=== PATIENT | female | born 1985 | race Caucasian/White ===

== ENCOUNTER 2018-03-26 01:17 | Emergency (ER) | payer OTHER ==
--- NOTE | 2018-03-26 02:41 | ER ---
Nurse's Notes [facility] Name: Gina Mon Age: 33 yrs Sex: Female : 1985 Arrival Date: 03/26/2018 Time: : Bed 5 Private MD: Diagnosis: Pain in right wrist Presentation: 03/26 01:42 Presenting complaint: Patient states: right wrist pain and numbness X5 days while ak1 helping her father clean out her grandfathers estate. pt with full ROM to right wrist at this time. Transition of care: patient was not received from another setting of care. Onset of symptoms is unknown. Risk Assessment: Do you want to hurt yourself or someone else? Patient reports no desire to harm self or others. Initial Sepsis Screen: Does the patient meet any 2 criteria? No. Patient's initial sepsis screen is negative. Does the patient have a suspected source of infection? No. Patient's initial sepsis screen is negative. Care prior to arrival: None. 01:42 Method Of Arrival: Ambulatory ak1 01:42 Acuity: KATRIN 4 ak1 Triage Assessment: 01:44 General: Appears in no apparent distress. Behavior is calm, cooperative. Pain: ak1 Complains of pain in dorsum of right hand, dorsal aspect of right wrist, heel of right hand, palm of right hand and palmar aspect of right wrist. EENT: No signs and/or symptoms were reported regarding the EENT system. Neuro: No deficits noted. Cardiovascular: No deficits noted. Respiratory: No deficits noted. GI: No signs and/or symptoms were reported involving the gastrointestinal system. : No signs and/or symptoms were reported regarding the genitourinary system. Derm: No signs and/or symptoms reported regarding the dermatologic system. Musculoskeletal: Range of motion: intact in all extremities. Injury Description: no known injury. 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 - Social history:: Smoking status: Patient uses tobacco products, smokes one-half pack cigarettes per day. - Ebola Screening: : No symptoms or risks identified at this time. Screenin:46 Abuse screen: Denies threats or abuse. Denies injuries from another. Nutritional ak1 screening: No deficits noted. Tuberculosis screening: No symptoms or risk factors identified. Fall Risk None identified. Assessment: 01:47 Reassessment: see triage assessment. ak1 Vital Signs: 01:44 BP 119 / 72; Pulse 72; Resp 18; Temp 98.5(O); Pulse Ox 98% on R/A; Weight 81.65 kg (R); ak1 Height 5 ft. 6 in. (167.64 cm) (R); Pain 5/10; 01:44 Body Mass Index 29.05 (81.65 kg, 167.64 cm) ak1 ED Course: 01:22 Patient arrived in ED. es 01:23 Omari Cohen PA is PHCP. cp 01:23 Shashank Trevizo MD is Attending Physician. cp 01:41 Mell Wise, RN is Primary Nurse. ak1 01:42 Triage completed. ak1 01:44 Arm band placed on Patient placed in an exam room, on a stretcher, on pulse oximetry, ak1 Patient notified of wait time. 01:47 Patient has correct armband on for positive identification. Bed in low position. Call ak1 light in reach. Side rails up X 1. Pulse ox on. NIBP on. 01:47 No provider procedures requiring assistance completed. ak1 02:06 X-ray completed. Portable x-ray completed in exam room. Patient tolerated procedure kw well. 02:13 XRAY Wrist RIGHT 3 view In Process Unspecified. EDMS 02:40 John Rios MD is Referral Physician. cp 02:52 Patient did not have IV access during this emergency room visit. ak1 Administered Medications: 02:51 Not Given (Patient Refused): Ibuprofen 800 mg PO once ak1 Outcome: 02:40 Discharge ordered by . cp 02:51 Discharged to home ambulatory. ak1 02:51 Condition: good 02:51 Discharge instructions given to patient, Instructed on discharge instructions, follow up and referral plans. no drinking with medication, no driving heavy equipment, medication usage, Demonstrated understanding of instructions, follow-up care, medications, Prescriptions given X 1. 02:52 Patient left the ED. ak1 Signatures: Dispatcher [employer] Lodya Borges Kimberlee kw Krenek, Amber, RN RN ak1 Omari Cohen PA PA cp
--- NOTE | 2018-03-26 02:42 | EDPHYS ---
Physician Documentation [facility] Name: Gina Mon Age: 33 yrs Sex: Female : 1985 Arrival Date: 03/26/2018 Time: : Bed 5 Private MD: ED Physician Shashank Trevizo HPI: 03/26 01:45 This 33 yrs old Female presents to ER via Ambulatory with complaints of Wrist cp Injury. 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 - Social history:: Smoking status: Patient uses tobacco products, smokes one-half pack cigarettes per day. - Ebola Screening: : No symptoms or risks identified at this time. ROS: 02:00 Constitutional: Negative for body aches, chills, fever, poor PO intake. cp 02:00 Eyes: Negative for injury, pain, redness, and discharge. cp 02:00 ENT: Negative for drainage from ear(s), ear pain, sore throat, difficulty swallowing, difficulty handling secretions. 02:00 Cardiovascular: Negative for chest pain, edema, palpitations. 02:00 Respiratory: Negative for cough, shortness of breath, wheezing. 02:00 MS/extremity: Positive for pain, tenderness, of the right wrist, Negative for decreased range of motion, paresthesias, swelling. 02:00 Skin: Negative for cellulitis, rash. 02:00 Neuro: Positive for weakness, of the right wrist, Negative for headache, numbness. 02:00 All other systems are negative. Exam: 02:05 Constitutional: The patient appears in no acute distress, alert, awake, non-toxic, well cp developed, well nourished. 02:05 Head/Face: Normocephalic, atraumatic. cp 02:05 Eyes: Periorbital structures: appear normal, Conjunctiva: normal, no exudate, no injection, Sclera: no appreciated abnormality, Lids and lashes: appear normal, bilaterally. 02:05 ENT: External ear(s): are unremarkable, Nose: is normal, Mouth: Lips: moist, Oral mucosa: moist. 02:05 Chest/axilla: Inspection: normal. 02:05 Cardiovascular: Rate: normal, Pulses: Pulses are 2+ in right radial artery and left radial artery. 02:05 Respiratory: the patient does not display signs of respiratory distress, Respirations: normal. 02:05 Musculoskeletal/extremity: Extremities: grossly normal except: noted in the volar surface right wrist: pain, tenderness, There is no evidence of decreased ROM, swelling, ROM: full passive range of motion, in the right wrist, Sensation intact. 02:05 Skin: cellulitis, is not appreciated, no rash present. Vital Signs: 01:44 BP 119 / 72; Pulse 72; Resp 18; Temp 98.5(O); Pulse Ox 98% on R/A; Weight 81.65 kg (R); ak1 Height 5 ft. 6 in. (167.64 cm) (R); Pain 5/10; 01:44 Body Mass Index 29.05 (81.65 kg, 167.64 cm) ak1 Procedures: 02:45 Splinting: Splint applied to right wrist using wrist splint, applied by nurse. Examined cp by me, post splint application: neurovascular intact, Patient tolerated well. MDM: 01:24 Patient medically screened. cp 02:10 Differential diagnosis: dislocation, closed fracture, tendonitis. cp 02:40 Data reviewed: vital signs, nurses notes, radiologic studies, plain films. cp 02:40 Test interpretation: by ED physician or midlevel provider: plain radiologic studies. cp Counseling: I had a detailed discussion with the patient and/or guardian regarding: the historical points, exam findings, and any diagnostic results supporting the discharge/admit diagnosis, radiology results, to return to the emergency department if symptoms worsen or persist or if there are any questions or concerns that arise at home. 03/26 01:56 Order name: XRAY Wrist RIGHT 3 view cp 03/26 02:42 Order name: Wrist Splint; Complete Time: 02:45 cp Administered Medications: 02:51 Not Given (Patient Refused): Ibuprofen 800 mg PO once ak1 Disposition: 06:03 Co-signature as Attending Physician, Shashank Trevizo MD. rn Disposition: 03/26/18 02:40 Discharged to Home. Impression: Pain in right wrist. - Condition is Stable. - Discharge Instructions: Carpal Tunnel Syndrome, Wrist Pain, Wrist Splint. - Prescriptions for Anaprox DS 550 mg Oral Tablet - take 1 tablet by ORAL route every 12 hours As needed; 20 tablet. - Medication Reconciliation Form, Thank You Letter, Antibiotic Education, Prescription Opioid Use form. - Follow up: John Rios MD; When: 1 week; Reason: pain continues. - Problem is new. - Symptoms have improved. Signatures: Dispatcher [employer] EDMS Shashank Trevizo MD MD rn Krenek, Amber, RN RN ak1 Omari Cohen PA PA cp Corrections: (The following items were deleted from the chart) 02:42 02:00 This 33 yrs old Female presents to ER via Ambulatory with complaints of cp Wrist Injury. cp 02:52 02:40 03/26/2018 02:40 Discharged to Home. Impression: Pain in right wrist. Condition ak1 is Stable. Forms are Medication Reconciliation Form, Thank You Letter, Antibiotic Education, Prescription Opioid Use. Follow up: John Rios; When: 1 week; Reason: pain continues. Problem is new. Symptoms have improved. cp
--- NOTE | 2018-03-26 08:37 | RAD REPORT ---
EXAM DESCRIPTION: RAD - Wrist Right 3 View - 03/26/2018 2:13 am CLINICAL HISTORY: Hand and wrist pain following trauma COMPARISON: None. FINDINGS: No fracture is identified. There is no dislocation or periosteal reaction noted. Epiphyses and growth plates are Normal in appearance. No foreign body or other soft tissue abnormality. IMPRESSION: Negative right wrist examination.
== END 2018-03-26 02:52 | disposition home or self-care (01) ==
LOC: ER 01:17
DX: M25.531 Pain in right wrist (principal); F32.9 Major depressive disorder, single episode, unspecified; F17.210 Nicotine dependence, cigarettes, uncomplicated; Z88.8 Allergy status to other drugs, medicaments and biological substances
CPT/HCPCS: 99283

== ENCOUNTER 2018-12-17 22:33 | Emergency (ER) | payer OTHER, SELFPAY ==
--- NOTE | 2018-12-17 23:08 | EDPHYS ---
Physician Documentation [facility] Name: Gina Mon Age: 33 yrs Sex: Female : 1985 Arrival Date: 12/17/2018 Time: 22:37 Bed 7 Private MD: ED Physician Cali Donohue HPI: 12/17 23:06 This 33 yrs old Female presents to ER via Ambulatory with complaints of Rash. pm1 23:06 The patient's rash thought to be caused by scabies. The rash is located on the body pm1 diffusely. The rash can be described as diffuse. Onset: The symptoms/episode began/occurred 1 month(s) ago. Associated signs and symptoms: Pertinent positives: itching, Pertinent negatives: fever, swelling of lips, swelling of throat, swelling of tongue. Severity of symptoms: in the emergency department the symptoms are worse. Treatment given at home: None. Patient has been prescribed Elimite twice. Symptoms improved and then returned. Patient's roommate recently got rid of his dog that had mange. The patient has not experienced similar symptoms in the past. The patient has been recently seen by a physician: with similar presenting complaints, and apparently given a diagnosis of scabies. 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 - Social history:: Smoking status: Patient uses tobacco products, smokes one pack cigarettes per day. - Ebola Screening: : No symptoms or risks identified at this time. ROS: 23:06 Constitutional: Negative for fever, chills, and weight loss, Eyes: Negative for injury, pm1 pain, redness, and discharge, ENT: Negative for injury, pain, and discharge, Neck: Negative for injury, pain, and swelling, Cardiovascular: Negative for chest pain, palpitations, and edema, Respiratory: Negative for shortness of breath, cough, wheezing, and pleuritic chest pain, Back: Negative for injury and pain, MS/Extremity: Negative for injury and deformity. 23:06 Skin: Positive for rash, diffusely. Exam: 23:06 Constitutional: This is a well developed, well nourished patient who is awake, alert, pm1 and in no acute distress. Head/Face: Normocephalic, atraumatic. 23:06 Chest/axilla: Normal chest wall appearance and motion. Nontender with no deformity. No lesions are appreciated. Cardiovascular: Regular rate and rhythm with a normal S1 and S2. No gallops, murmurs, or rubs. Normal PMI, no JVD. No pulse deficits. Respiratory: Lungs have equal breath sounds bilaterally, clear to auscultation and percussion. No rales, rhonchi or wheezes noted. No increased work of breathing, no retractions or nasal flaring. Back: No spinal tenderness. No costovertebral tenderness. Full range of motion. 23:06 Skin: Appearance: normal except for affected area, consistent with scabies. 23:06 Neuro: Orientation: is normal, Motor: is normal, moves all fours. Vital Signs: 23:03 BP 124 / 83; Pulse 112; Resp 18; Temp 98.4(O); Pulse Ox 97% on R/A; Weight 77.11 kg; tl2 Height 5 ft. 6 in. (167.64 cm); Pain 8/10; 23:03 Body Mass Index 27.44 (77.11 kg, 167.64 cm) tl2 MDM: 22:41 Patient medically screened. pm1 23:06 Data reviewed: vital signs. Data interpreted: Pulse oximetry: on room air is 97 %. pm1 Interpretation: normal. Counseling: I had a detailed discussion with the patient and/or guardian regarding: the historical points, exam findings, and any diagnostic results supporting the discharge/admit diagnosis, the need for outpatient follow up, to return to the emergency department if symptoms worsen or persist or if there are any questions or concerns that arise at home. Administered Medications: 23:20 Drug: Benadryl 25 mg Route: PO; tl2 23:21 Follow up: Response: No adverse reaction; Medication administered at discharge. tl2 23:20 Drug: predniSONE 60 mg Route: PO; tl2 23:21 Follow up: Response: No adverse reaction; Medication administered at discharge. tl2 Disposition: 12/18 22:07 Co-signature as Attending Physician, Cali Donohue MD Available for consultation at ps1 all times. . Disposition: 12/17/18 23:08 Discharged to Home. Impression: Scabies. - Condition is Stable. - Discharge Instructions: Scabies, Adult. - Prescriptions for Benadryl 25 mg Oral Capsule - take 1 capsule by ORAL route every 6 hours As needed; 30 tablet. Elimite 5 % Topical Cream - apply 1 application by TOPICAL route one time Wash after 12 hours.; 60 gram. - Medication Reconciliation Form, Thank You Letter, Antibiotic Education, Prescription Opioid Use form. - Follow up: Emergency Department; When: As needed; Reason: Worsening of condition. Follow up: Private Physician; When: 2 - 3 days; Reason: Recheck today's complaints, Continuance of care, Re-evaluation by your physician. - Problem is new. - Symptoms have improved. Signatures: Adam Jackson, RADIO NEWS ANCHOR RADIO NEWS ANCHOR pm1 Chata Pina RN RN tl2 Cali Donohue MD MD ps1 Corrections: (The following items were deleted from the chart) 12/17 23:34 23:08 12/17/2018 23:08 Discharged to Home. Impression: Scabies. Condition is Stable. tl2 Forms are Medication Reconciliation Form, Thank You Letter, Antibiotic Education, Prescription Opioid Use. Follow up: Emergency Department; When: As needed; Reason: Worsening of condition. Follow up: Private Physician; When: 2 - 3 days; Reason: Recheck today's complaints, Continuance of care, Re-evaluation by your physician. Problem is new. Symptoms have improved. pm1
--- NOTE | 2018-12-17 23:08 | ER ---
Nurse's Notes [facility] Name: Gina Mon Age: 33 yrs Sex: Female : 1985 Arrival Date: 12/17/2018 Time: 22:37 Bed 7 Private MD: Diagnosis: Scabies Presentation: 12/17 23:01 Presenting complaint: Patient states: "I think I have scabies, I saw a doctor for it tl2 before and he gave me a cream that made it go away but it keeps coming back. I think the house I live in is infested" Reports itching and scabs present all over body. Transition of care: patient was not received from another setting of care. Onset of symptoms was October 2018. Risk Assessment: Do you want to hurt yourself or someone else? Patient reports no desire to harm self or others. Initial Sepsis Screen: Does the patient meet any 2 criteria? HR > 90 bpm. Does the patient have a suspected source of infection? No. Patient's initial sepsis screen is negative. Care prior to arrival: None. 23:01 Method Of Arrival: Ambulatory tl2 23:01 Acuity: KATRIN 4 tl2 Triage Assessment: 23:03 General: Appears in no apparent distress. uncomfortable, Behavior is calm, cooperative, tl2 appropriate for age. Pain: Complains of pain in arms, legs, face. Neuro: Level of Consciousness is awake, alert, obeys commands, Oriented to person, place, time, situation. Cardiovascular: Denies chest pain. Respiratory: Airway is patent Respiratory effort is even, unlabored, Respiratory pattern is regular, symmetrical. GI: Reports diarrhea. : No signs and/or symptoms were reported regarding the genitourinary system. Derm: Skin is pink, warm \\T\\ dry. Rash noted that is itchy, scabs present on skin. 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 - Social history:: Smoking status: Patient uses tobacco products, smokes one pack cigarettes per day. - Ebola Screening: : No symptoms or risks identified at this time. Screenin:05 Abuse screen: Denies threats or abuse. Nutritional screening: No deficits noted. tl2 Tuberculosis screening: No symptoms or risk factors identified. Fall Risk None identified. Assessment: 23:03 General: see triage assessment. tl2 23:20 Reassessment: Patient appears in no apparent distress at this time. Patient and/or tl2 family updated on plan of care and expected duration. Pain level reassessed. Patient is alert, oriented x 3, equal unlabored respirations, skin warm/dry/pink. pt verbalized understanding of discharge instructions, need for follow up and prescription usage. Vital Signs: 23:03 BP 124 / 83; Pulse 112; Resp 18; Temp 98.4(O); Pulse Ox 97% on R/A; Weight 77.11 kg; tl2 Height 5 ft. 6 in. (167.64 cm); Pain 8/10; 23:03 Body Mass Index 27.44 (77.11 kg, 167.64 cm) tl2 ED Course: 22:37 Patient arrived in ED. es 22:41 Adam Jackson NP is PHCP. pm1 22:41 Cali Donohue MD is Attending Physician. pm1 23:02 Triage completed. tl2 23:03 Arm band placed on right wrist. tl2 23:05 Patient has correct armband on for positive identification. Bed in low position. Call tl2 light in reach. Side rails up X 1. 23:20 Chata Pina, JOSÉ is Primary Nurse. tl2 23:20 No provider procedures requiring assistance completed. Patient did not have IV access tl2 during this emergency room visit. Administered Medications: 23:20 Drug: Benadryl 25 mg Route: PO; tl2 23:21 Follow up: Response: No adverse reaction; Medication administered at discharge. tl2 23:20 Drug: predniSONE 60 mg Route: PO; tl2 23:21 Follow up: Response: No adverse reaction; Medication administered at discharge. tl2 Outcome: 23:08 Discharge ordered by . pm1 23:20 Discharged to home ambulatory. tl2 23:20 Condition: stable 23:20 Discharge instructions given to patient, Instructed on discharge instructions, follow up and referral plans. medication usage, Demonstrated understanding of instructions, follow-up care, medications, Prescriptions given X 2. 23:34 Patient left the ED. tl2 Signatures: Loyda Squires Patrick, STITCHING MACHINE OPERATOR STITCHING MACHINE OPERATOR pm1 Chata Pina, RN RN tl2
[2018-12-17] MEDS ORDERED: predniSONE 20 MG TAB ONE (23:27)
[2018-12-17] MEDS ORDERED: DIPHENHYDRAMINE 25 MG TAB/CAP ONE (23:27)
== END 2018-12-17 23:34 | disposition home or self-care (01) ==
LOC: ER 22:33
DX: B86 Scabies (principal); F32.9 Major depressive disorder, single episode, unspecified; F17.210 Nicotine dependence, cigarettes, uncomplicated
CPT/HCPCS: 99283; J7512

== ENCOUNTER 2019-02-21 20:13 | Emergency (ER) | payer SELFPAY ==
--- NOTE | 2019-02-21 20:27 | EDPHYS ---
Physician Documentation [facility] Name: Gina Mon Age: 34 yrs Sex: Female : 1985 Arrival Date: 02/21/2019 Time: 20:14 Bed Waiting Private MD: MAEVE Physician Omari Turner HPI: 02/21 20:35 This 34 yrs old Female presents to ER via Ambulatory with complaints of Skin kb Problem. 20:35 The patient's rash thought to be caused by possible parasites. The rash is located on kb the body diffusely. The rash can be described as sores. Onset: The symptoms/episode began/occurred a few weeks ago. Associated signs and symptoms: Pertinent positives: None. Severity of symptoms: At their worst the symptoms were mild moderate in the emergency department the symptoms are unchanged. The patient has not experienced similar symptoms in the past. The patient has been recently seen by a physician:. Pt reports she has had sores for a few weeks. States she has done the scabies treatment three times without relief. . 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 - Social history:: Smoking status: Patient uses tobacco products, smokes one pack cigarettes per day. Patient/guardian denies using alcohol, street drugs. - Ebola Screening: : Patient denies travel to an Ebola-affected area in the 21 days before illness onset. ROS: 20:32 Constitutional: Negative for fever, chills, and weight loss, Cardiovascular: Negative kb for chest pain, palpitations, and edema, Respiratory: Negative for shortness of breath, cough, wheezing, and pleuritic chest pain, Abdomen/GI: Negative for abdominal pain, nausea, vomiting, diarrhea, and constipation, MS/Extremity: Negative for injury and deformity, Neuro: Negative for headache, weakness, numbness, tingling, and seizure. 20:32 Skin: Positive for skin sores. Exam: 20:33 Constitutional: This is a well developed, well nourished patient who is awake, alert, kb and in no acute distress. Head/Face: Normocephalic, atraumatic. Chest/axilla: Normal chest wall appearance and motion. Nontender with no deformity. No lesions are appreciated. Cardiovascular: Regular rate and rhythm with a normal S1 and S2. No gallops, murmurs, or rubs. Normal PMI, no JVD. No pulse deficits. Respiratory: Lungs have equal breath sounds bilaterally, clear to auscultation and percussion. No rales, rhonchi or wheezes noted. No increased work of breathing, no retractions or nasal flaring. Abdomen/GI: Soft, non-tender, with normal bowel sounds. No distension or tympany. No guarding or rebound. No evidence of tenderness throughout. MS/ Extremity: Pulses equal, no cyanosis. Neurovascular intact. Full, normal range of motion. Neuro: Awake and alert, GCS 15, oriented to person, place, time, and situation. Cranial nerves II-XII grossly intact. Motor strength 5/5 in all extremities. Sensory grossly intact. Cerebellar exam normal. Normal gait. 20:33 Skin: Vital Signs: 20:18 BP 126 / 88; Pulse 115; Resp 20; Temp 97.2; Pulse Ox 98% on R/A; Weight 68.04 kg (R); aj1 Height 5 ft. 6 in. (167.64 cm) (R); Pain 0/10; 20:18 Body Mass Index 24.21 (68.04 kg, 167.64 cm) aj1 MDM: 20:20 Patient medically screened. [place] 20:31 Data reviewed: vital signs, nurses notes. Data interpreted: Pulse oximetry: on room air kb is 98 %. Interpretation: normal. Counseling: I had a detailed discussion with the patient and/or guardian regarding: the historical points, exam findings, and any diagnostic results supporting the discharge/admit diagnosis, the need for outpatient follow up, a family practitioner, to return to the emergency department if symptoms worsen or persist or if there are any questions or concerns that arise at home. Administered Medications: No medications were administered Disposition: 02/22 08:11 Co-signature as Attending Physician, Omari Turner MD I agree with the assessment and stuart plan of care. Disposition: 02/21/19 20:26 Discharged to Home. Impression: Local infection of the skin and subcutaneous tissue, unspecified. - Condition is Stable. - Discharge Instructions: Insect Bite, [id number], Wound Infection, [id number]-nn-Cwwm. - Prescriptions for Doxycycline Hyclate 100 mg Oral Tablet - take 1 tablet by ORAL route every 12 hours; 20 tablet. - Medication Reconciliation Form, Thank You Letter, Antibiotic Education, Prescription Opioid Use form. - Follow up: Emergency Department; When: As needed; Reason: Worsening of condition. Follow up: Private Physician; When: 2 - 3 days; Reason: Recheck today's complaints, Continuance of care, Re-evaluation by your physician. Signatures: Laurel Darling FNP-C FNP-Ileana Joyner RN RN aj1 Omari Turner MD MD cha Corrections: (The following items were deleted from the chart) 02/21 20:41 20:26 02/21/2019 20:26 Discharged to Home. Impression: Local infection of the skin and aj1 subcutaneous tissue, unspecified. Condition is Stable. Forms are Medication Reconciliation Form, Thank You Letter, Antibiotic Education, Prescription Opioid Use. Follow up: Emergency Department; When: As needed; Reason: Worsening of condition. Follow up: Private Physician; When: 2 - 3 days; Reason: Recheck today's complaints, Continuance of care, Re-evaluation by your physician. kb
--- NOTE | 2019-02-21 20:27 | ER ---
Nurse's Notes [facility] Name: Gina Mon Age: 34 yrs Sex: Female : 1985 Arrival Date: 02/21/2019 Time: 20:14 Bed Waiting Private MD: Diagnosis: Local infection of the skin and subcutaneous tissue, unspecified Presentation: 02/21 20:14 Presenting complaint: Patient states: She has been diagnosed with scabies multiple aj1 times, she does the treatment and it goes away but then it comes right back. Transition of care: patient was not received from another setting of care. Onset of symptoms was February 21, 2019. Risk Assessment: Do you want to hurt yourself or someone else? Patient reports no desire to harm self or others. Initial Sepsis Screen: Does the patient meet any 2 criteria? HR > 90 bpm. No. Patient's initial sepsis screen is negative. Does the patient have a suspected source of infection? No. Patient's initial sepsis screen is negative. Care prior to arrival: None. 20:14 Method Of Arrival: Ambulatory aj1 20:14 Acuity: KATRIN 5 aj1 Triage Assessment: 20:18 General: Appears in no apparent distress. comfortable, Behavior is calm, cooperative, aj1 appropriate for age. Pain: Denies pain. Neuro: Level of Consciousness is awake, alert, obeys commands, Oriented to person, place, time, situation. Cardiovascular: Patient's skin is warm and dry. Respiratory: Airway is patent Respiratory effort is even, unlabored, Respiratory pattern is regular, symmetrical. 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 - Social history:: Smoking status: Patient uses tobacco products, smokes one pack cigarettes per day. Patient/guardian denies using alcohol, street drugs. - Ebola Screening: : Patient denies travel to an Ebola-affected area in the 21 days before illness onset. Screenin:39 Abuse screen: Denies threats or abuse. Denies injuries from another. Nutritional aj1 screening: No deficits noted. Tuberculosis screening: No symptoms or risk factors identified. Fall Risk None identified. Assessment: 20:39 General: Appears in no apparent distress. comfortable, Behavior is calm, cooperative, aj1 appropriate for age. Pain: Denies pain. Neuro: Level of Consciousness is awake, alert, obeys commands. Cardiovascular: Patient's skin is warm and dry. Respiratory: Airway is patent Respiratory effort is even, unlabored, Respiratory pattern is regular, symmetrical. GI: No signs and/or symptoms were reported involving the gastrointestinal system. : No signs and/or symptoms were reported regarding the genitourinary system. EENT: No signs and/or symptoms were reported regarding the EENT system. Derm: Rash noted that is red, raised, on face, back, chest, abdomen, right arm, left arm and right leg. Musculoskeletal: No signs and/or symptoms reported regarding the musculoskeletal system. Circulation, motion, and sensation intact. Vital Signs: 20:18 BP 126 / 88; Pulse 115; Resp 20; Temp 97.2; Pulse Ox 98% on R/A; Weight 68.04 kg (R); aj1 Height 5 ft. 6 in. (167.64 cm) (R); Pain 0/10; 20:18 Body Mass Index 24.21 (68.04 kg, 167.64 cm) aj1 ED Course: 20:14 Patient arrived in ED. mr 20:17 Triage completed. aj1 20:18 Arm band placed on. aj1 20:20 Omari Turner MD is Attending Physician. stuart 20:21 Sliva Angulo, RN is Primary Nurse. [facility] 20:22 aLurel Darling FNP-C is [facility]. kb 20:22 Omari Turner MD is Attending Physician. kb 20:39 Patient has correct armband on for positive identification. aj1 20:39 No provider procedures requiring assistance completed. Patient did not have IV access aj1 during this emergency room visit. Administered Medications: No medications were administered Outcome: 20:26 Discharge ordered by . kb 20:40 Discharged to home ambulatory. aj1 20:40 Condition: good 20:40 Discharge instructions given to patient, Instructed on discharge instructions, follow up and referral plans. medication usage, Demonstrated understanding of instructions, follow-up care, medications, Prescriptions given X 1. 20:41 Patient left the ED. aj1 Signatures: Laurel Darling FNP-C HELP AID-Ileana Joyner, JOSÉ RN aj1 Omari Turner MD MD cha Rivera, Mary mr Silva Angulo, JOSÉ RN ca1
[2019-02-21 21:29] VITALS: BP 126/88; TEMP 97.2; O2SAT 98
== END 2019-02-21 20:41 | disposition home or self-care (01) ==
LOC: ER 20:13
DX: L08.9 Local infection of the skin and subcutaneous tissue, unspecified (principal); F17.210 Nicotine dependence, cigarettes, uncomplicated; Z88.6 Allergy status to analgesic agent; Z91.030 Bee allergy status
CPT/HCPCS: 99282

== ENCOUNTER 2019-04-18 17:45 | Emergency (ER) | payer SELFPAY ==
--- NOTE | 2019-04-18 18:11 | EDPHYS ---
Physician Documentation [facility] Name: Gina Mon Age: 34 yrs Sex: Female : 1985 Arrival Date: 04/18/2019 Time: 17:48 Bed 14 Private MD: ED Physician Norberto Calderon HPI: 04/18 17:59 This 34 yrs old Female presents to ER via Ambulatory with complaints of Rash. jmm 17:59 Onset: The symptoms/episode began/occurred gradually, 3 day(s) ago. Associated signs jmm and symptoms: Pertinent positives: fever, Pertinent negatives: burning sensation, difficulty breathing, swelling of lips, swelling of throat, swelling of tongue, vomiting, wheezing. This is a 34 year old female with a history of depression that presents to the ED with complaints of rash which has been episodic over the past 6 months. Patient was initially diagnosed with scabies and prescribed cream while helped. Patient states symptoms have returned.. Historical: - Allergies: 18:12 BEE STINGS; ss 18:12 GABAPENTIN; ss - PMHx: 18:12 Depression; ss - Immunization history:: Adult Immunizations up to date. - Social history:: Smoking status: unknown. - Ebola Screening: : Patient denies exposure to infectious person Patient denies travel to an Ebola-affected area in the 21 days before illness onset. ROS: 17:59 Constitutional: Negative for fever, chills, and weight loss, Cardiovascular: Negative jmm for chest pain, palpitations, and edema, Respiratory: Negative for shortness of breath, cough, wheezing, and pleuritic chest pain. 17:59 Skin: Positive for rash. 17:59 All other systems are negative. Exam: 17:59 Constitutional: This is a well developed, well nourished patient who is awake, alert, jmm and in no acute distress. Head/Face: atraumatic. Eyes: EOMI, no conjunctival erythema appreciated ENT: Moist Mucus Membranes Neck: Trachea midline, Supple Chest/axilla: Normal chest wall appearance and motion. Cardiovascular: Regular rate and rhythm. No edema appreciated Respiratory: Normal respirations, no respiratory distress appreciated Abdomen/GI: Non distended, soft Back: Normal ROM 17:59 MS/ Extremity: Moves all extremities, no obvious deformities appreciated, no edema noted to the lower extremities 17:59 Skin: scaling rash noted ot the hands bilaterally, erythematous rash noted to the back of the neck and chest. Vital Signs: 18:12 BP 125 / 86; Pulse 70; Resp 16; Temp 98.6(O); Pulse Ox 97% on R/A; Weight 72.57 kg; ss Height 5 ft. 6 in. (167.64 cm); 18:12 Body Mass Index 25.82 (72.57 kg, 167.64 cm) ss MDM: 17:59 Patient medically screened. [facility] 18:09 Data reviewed: vital signs, nurses notes. Counseling: I had a detailed discussion with jono the patient and/or guardian regarding: the historical points, exam findings, and any diagnostic results supporting the discharge/admit diagnosis, the need for outpatient follow up, to return to the emergency department if symptoms worsen or persist or if there are any questions or concerns that arise at home. Administered Medications: No medications were administered Disposition: 04/19 07:31 Co-signature as Attending Physician, Norberto Calderon MD I agree with the assessment and kdr plan of care. Disposition: 04/18/19 18:10 Discharged to Home. Impression: Rash and other nonspecific skin eruption. - Condition is Stable. - Discharge Instructions: Rash. - Prescriptions for Elimite 5 % Topical Cream - apply 1 application by TOPICAL route one time Wash after 12 hours.; 60 gram. Hydroxyzine HCl 25 mg Oral Tablet - take 1 tablet by ORAL route every 6 hours As needed; 30 tablet. Prednisone 20 mg Oral Tablet - take 3 tablet by ORAL route once daily for 5 days; 15 tablet. Doxycycline Hyclate 100 mg Oral Tablet - take 1 tablet by ORAL route every 12 hours; 20 tablet. - Medication Reconciliation Form, Thank You Letter, Antibiotic Education, Prescription Opioid Use form. - Follow up: Private Physician; When: 2 - 3 days; Reason: Recheck today's complaints, Continuance of care, Re-evaluation by your physician. Signatures: Norberto Calderon MD MD kdr Mickail, Joel, PA PA jmm Smirch, Shelby, RN RN ss Corrections: (The following items were deleted from the chart) 04/18 18:17 18:10 04/18/2019 18:10 Discharged to Home. Impression: Rash and other nonspecific skin ss eruption. Condition is Stable. Forms are Medication Reconciliation Form, Thank You Letter, Antibiotic Education, Prescription Opioid Use. Follow up: Private Physician; When: 2 - 3 days; Reason: Recheck today's complaints, Continuance of care, Re-evaluation by your physician. jono
--- NOTE | 2019-04-18 18:18 | ER ---
Nurse's Notes [facility] Name: Gina Mon Age: 34 yrs Sex: Female : 1985 Arrival Date: 04/18/2019 Time: 17:48 Bed 14 Private MD: Diagnosis: Rash and other nonspecific skin eruption Presentation: 04/18 17:56 Presenting complaint: Patient states: rash all over body x 6 months. Patient has been ss seen in ER 5 times, but states that her rash keeps coming back. Spouse also reports he has the similar rash to his R upper thigh. 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 Transition of care: patient was not received from another setting of care. Onset of symptoms was October 2018. Risk Assessment: Do you want to hurt yourself or someone else? Patient reports no desire to harm self or others. Initial Sepsis Screen: Does the patient meet any 2 criteria? No. Patient's initial sepsis screen is negative. Does the patient have a suspected source of infection? No. Patient's initial sepsis screen is negative. Care prior to arrival: None. 17:56 Acuity: KATRIN 5 ss 17:56 Method Of Arrival: Ambulatory ss Historical: - Allergies: 18:12 BEE STINGS; ss 18:12 GABAPENTIN; ss - PMHx: 18:12 Depression; ss - Immunization history:: Adult Immunizations up to date. - Social history:: Smoking status: unknown. - Ebola Screening: : Patient denies exposure to infectious person Patient denies travel to an Ebola-affected area in the 21 days before illness onset. Screenin:14 Abuse screen: Denies threats or abuse. Denies injuries from another. Nutritional ss screening: No deficits noted. Tuberculosis screening: Never had TB. Fall Risk None identified. Assessment: 18:14 General: Appears uncomfortable, Behavior is calm, cooperative. Pain: Complains of pain ss in hand tenderness where rash is present. Neuro: Level of Consciousness is awake, alert, obeys commands. Cardiovascular: Capillary refill < 3 seconds is brisk in bilateral fingers. Respiratory: Airway is patent Respiratory effort is even, unlabored, Respiratory pattern is regular, symmetrical. GI: No signs and/or symptoms were reported involving the gastrointestinal system. : No signs and/or symptoms were reported regarding the genitourinary system. EENT: Nares are clear Oral mucosa is moist. Throat is clear. Derm: Rash noted that is itchy, red, on face, right hand, left hand, right arm, left arm, right leg and left leg. Musculoskeletal: Swelling present in right hand. Vital Signs: 18:12 BP 125 / 86; Pulse 70; Resp 16; Temp 98.6(O); Pulse Ox 97% on R/A; Weight 72.57 kg; ss Height 5 ft. 6 in. (167.64 cm); 18:12 Body Mass Index 25.82 (72.57 kg, 167.64 cm) ED Course: 17:48 Patient arrived in ED. mr 17:48 Colton Eli PA is [facility]. [facility] 17:48 Norberto Calderon MD is Attending Physician. [facility] 18:01 Nahum Nobles, RN is Primary Nurse. 18:12 Triage completed. ss 18:12 Arm band placed on right wrist. 18:14 Patient has correct armband on for positive identification. Bed in low position. Call ss light in reach. 18:14 No provider procedures requiring assistance completed. Patient did not have IV access ss during this emergency room visit. Administered Medications: No medications were administered Outcome: 18:10 Discharge ordered by . [facility] 18:10 Discharged to home ambulatory, with family. 18:10 Condition: good 18:10 Discharge instructions given to patient, Instructed on discharge instructions, follow up and referral plans. medication usage, safety practices, Demonstrated understanding of instructions, follow-up care, medications, Prescriptions given X 3. 18:17 Patient left the ED. Signatures: Nahum Nboles, RN RN Colton Eli PA PA jmm Rivera, Mary Dot Jorge, RN RN
[2019-04-18 18:22] VITALS: BP 125/86; TEMP 98.6; O2SAT 97
== END 2019-04-18 18:17 | disposition home or self-care (01) ==
LOC: ER 17:45
DX: R21 Rash and other nonspecific skin eruption (principal); Z88.8 Allergy status to other drugs, medicaments and biological substances; Z91.030 Bee allergy status
CPT/HCPCS: 99282

== ENCOUNTER 2019-09-03 20:50 | Emergency (ER) | payer SELFPAY ==
--- OUTSIDE RECORDS SUMMARY | 2019-09-03 20:53 | XMS REPORT ---
:1985 Author Organization [facility] Address [address] [place] [address] Care Team Providers Name Role Phone Unavailable Unavailable Unavailable Problems This patient has no known problems. Allergies, Adverse Reactions, Alerts This patient has no known allergies or adverse reactions. Medications This patient has no known medications.
--- OUTSIDE RECORDS SUMMARY | 2019-09-03 20:54 | XMS REPORT | Summary of Care ---
:1985 Author Organization [facility] Address [address] [place] [id number] Care Team Providers Name Role Phone Pcp, Patient Does Not Have A Primary Care Provider Reason for Visit Reason Comments Skin Problem Auth/Cert Status Reason Specialty Diagnoses / Referred By Referred To Procedures Contact Contact Emergency Medicine Ed-Emergency Dept [address] [place] [phone] Encounter Details Date Type Department Care Team Description 08/28/2019 Emergency [facility] Reinier Walden, MYSQL DATABASE ADMINISTRATOR [address] [place] [id number] [place], [place] [id number] Allergies No Known Allergiesdocumented as of this encounter (statuses as of 08/28/2019) Medications Not on filedocumented as of this encounter (statuses as of 08/28/2019) Active Problems Not on filedocumented as of this encounter (statuses as of 08/28/2019) Social History Tobacco Use Types Packs/Day Years Used Date Never Assessed Sex Assigned at Date Recorded Not on file Job Start Date Occupation Industry Not on file Not on file Not on file Travel History Travel Start Travel End No recent travel history available. documented as of this encounter Last Filed Vital Signs Vital Sign Reading Time Taken Comments Blood Pressure 138/99 08/28/2019 5:51 PM CDT Pulse 99 08/28/2019 5:51 PM CDT Temperature 37.2 C (99 F) 08/28/2019 5:51 PM CDT Respiratory Rate 16 08/28/2019 5:51 PM CDT Oxygen Saturation 96% 08/28/2019 5:51 PM CDT Inhaled Oxygen Concentration - - Weight 65.8 kg (145 lb) 08/28/2019 5:51 PM CDT Height - - Body Mass Index - - documented in this encounter Plan of Treatment Health Maintenance Due Date Last Done Comments VARICELLA VACCINES ( of - 01/20/1985 2-dose childhood series) DTaP,Tdap,and Td Vaccines ( - 01/20/1995 Tdap) PAP SMEAR 01/20/2005 INFLUENZA VACCINE (#1) 2019 PNEUMOCOCCAL 0-64 YEARS COMBINED Aged Out No longer eligible based on SERIES patient's age to complete this topic documented as of this encounter Results Not on filedocumented in this encounter Insurance Payer Benefit Plan / Subscriber ID Effective Phone Address Type Group Dates MEDICAID MEDICAID PENDING 2019-[address] [place]ending [place] [address] documented as of this encounter
--- NOTE | 2019-09-03 21:34 | ER ---
Nurse's Notes [facility] Name: Gina Mon Age: 34 yrs Sex: Female : 1985 Arrival Date: 09/03/2019 Time: 20:54 Bed DIS1 Private MD: Diagnosis: Dermatitis, unspecified Presentation: 09/02 21:01 Acuity: KATRIN 5 sg 21:01 Chief complaint: Patient states: Sores that are draining and itchy on my head and face, sg I think Im septic x1 year now. Coronavirus screen: Patient denies fever greater than 100.4F, cough, shortness of breath, or difficulty breathing. Ebola Screen: Patient negative for fever greater than or equal to 101.5 degrees Fahrenheit, and additional compatible Ebola Virus Disease symptoms Patient denies exposure to infectious person. Patient denies travel to an Ebola-affected area in the 21 days before illness onset. No symptoms or risks identified at this time. Initial Sepsis Screen: Does the patient meet any 2 criteria? No. Patient's initial sepsis screen is negative. Does the patient have a suspected source of infection? Yes: Skin breakdown/wound. Risk Assessment: Do you want to hurt yourself or someone else? Patient reports no desire to harm self or others. 21:01 Method Of Arrival: Ambulatory sg Historical: - Allergies: 21:05 BEE STINGS; sg 21:05 GABAPENTIN; sg - Home Meds: 21:05 Suboxone sublingual [Active]; sg - PMHx: 21:05 Depression; sg - Immunization history:: Adult Immunizations up to date. - Social history:: Smoking status: Patient reports the use of cigarette tobacco products. Screenin:08 Abuse screen: Denies threats or abuse. Nutritional screening: No deficits noted. ea Tuberculosis screening: No symptoms or risk factors identified. Fall Risk None identified. Vital Signs: 21:07 BP 120 / 82; Pulse 65; Resp 18; Temp 98; Pulse Ox 98% ; ea ED Course: 20:54 Patient arrived in ED. am2 20:58 Saqib Dalton MD is Attending Physician. tw4 21:02 Triage completed. sg 21:05 Arm band placed on. sg 21:08 Patient has correct armband on for positive identification. Bed in low position. ea 21:31 No provider procedures requiring assistance completed. Patient did not have IV access sg during this emergency room visit. Administered Medications: No medications were administered Outcome: :30 Medical screen evaluation completed per provider. Patient declined treatment. sg : Condition: stable 21: Instructed on follow up and referral plans. community resources provided : Discharge ordered by . tw4 :34 Patient left the ED. sg Signatures: Nahum Nobles RN RN sg Moreno, Amanda am2 Antunez, Elena, RN RN ea Wadley, Terrence, MD MD tw4
--- NOTE | 2019-09-03 21:35 | EDPHYS ---
Physician Documentation [facility] Name: Gina Mon Age: 34 yrs Sex: Female : 1985 Arrival Date: 09/03/2019 Time: 20:54 Bed DIS1 Private MD: ED Physician Saqib Dalton HPI: 09/03 03:57 This 34 yrs old Female presents to ER via Ambulatory with complaints of Skin tw4 Sore(s), fluid/sores on head. 03:57 The patient's rash thought to be caused by Dermatitis. The rash is located on the right tw4 scapular area and left mid back. The rash can be described as papular. Onset: The symptoms/episode began/occurred 1 week(s) ago. Associated signs and symptoms: Pertinent negatives: None. Severity of symptoms: At their worst the symptoms were mild in the emergency department the symptoms are unchanged. The patient has not experienced similar symptoms in the past. Historical: - Allergies: 09/02 21:05 BEE STINGS; sg 21:05 GABAPENTIN; sg - Home Meds: 21:05 Suboxone sublingual [Active]; sg - PMHx: 21:05 Depression; sg - Immunization history:: Adult Immunizations up to date. - Social history:: Smoking status: Patient reports the use of cigarette tobacco products. ROS: 09/03 03:57 Constitutional: Negative for fever, chills, and weight loss, Eyes: Negative for injury, tw4 pain, redness, and discharge, Cardiovascular: Negative for chest pain, palpitations, and edema, Respiratory: Negative for shortness of breath, cough, wheezing, and pleuritic chest pain, Abdomen/GI: Negative for abdominal pain, nausea, vomiting, diarrhea, and constipation, Back: Negative for injury and pain, Neuro: Negative for headache, weakness, numbness, tingling, and seizure, Psych: Negative for depression, anxiety, suicide ideation, homicidal ideation, and hallucinations. Skin: Positive for rash, Negative for abrasions, abscesses, avulsion, burn, cellulitis, diaphoresis. Exam: 03:57 Constitutional: This is a well developed, well nourished patient who is awake, alert, tw4 and in no acute distress. Head/Face: Normocephalic, atraumatic. Chest/axilla: Normal chest wall appearance and motion. Nontender with no deformity. No lesions are appreciated. Cardiovascular: Regular rate and rhythm with a normal S1 and S2. No gallops, murmurs, or rubs. Normal PMI, no JVD. No pulse deficits. Respiratory: Lungs have equal breath sounds bilaterally, clear to auscultation and percussion. No rales, rhonchi or wheezes noted. No increased work of breathing, no retractions or nasal flaring. Abdomen/GI: Soft, non-tender, with normal bowel sounds. No distension or tympany. No guarding or rebound. No evidence of tenderness throughout. Back: No spinal tenderness. No costovertebral tenderness. Full range of motion. MS/ Extremity: Pulses equal, no cyanosis. Neurovascular intact. Full, normal range of motion. Neuro: Awake and alert, GCS 15, oriented to person, place, time, and situation. Cranial nerves II-XII grossly intact. Motor strength 5/5 in all extremities. Sensory grossly intact. Cerebellar exam normal. Normal gait. 03:57 Skin: contact dermatitis. Vital Signs: 09/02 21:07 BP 120 / 82; Pulse 65; Resp 18; Temp 98; Pulse Ox 98% ; ea MDM: 20:58 Patient medically screened. tw4 21:33 Medical screen evaluation completed. EMTALA emergency medical condition absent. Special tw4 discussion: I discussed with the patient/guardian in detail that at this point there is no indication for admission to the hospital. It is understood, however, that if the symptoms persist or worsen the patient needs to return immediately for re-evaluation. 09/03 03:57 Differential diagnosis: impetigo. Data reviewed: vital signs, nurses notes. Data tw4 interpreted: Pulse oximetry: Interpretation: normal. Administered Medications: No medications were administered Disposition: 09/03/19 21:34 Discharged to Home. Impression: Dermatitis, unspecified. - Condition is Stable. - Medication Reconciliation Form, Thank You Letter, Antibiotic Education, Prescription Opioid Use form. - Follow up: Private Physician; When: Upon discharge from the Emergency Department; Reason: Recheck today's complaints, Continuance of care, Re-evaluation by your physician. - Problem is new. - Symptoms have improved. Signatures: Nahum Nobles RN RN sg Wadley, Terrence, MD MD tw4 Corrections: (The following items were deleted from the chart) 09/02 21:34 21:34 09/03/2019 21:34 Discharged to Home. Impression: Dermatitis, unspecified. sg Condition is Stable. Forms are Medication Reconciliation Form, Thank You Letter, Antibiotic Education, Prescription Opioid Use. Follow up: Private Physician; When: Upon discharge from the Emergency Department; Reason: Recheck today's complaints, Continuance of care, Re-evaluation by your physician. Problem is new. Symptoms have improved. tw4
[2019-09-03 21:39] VITALS: BP 120/82; TEMP 98; O2SAT 98
== END 2019-09-03 21:34 | disposition home or self-care (01) ==
LOC: ER 20:50
DX: L30.9 Dermatitis, unspecified (principal); F32.9 Major depressive disorder, single episode, unspecified; Z79.899 Other long term (current) drug therapy; F17.210 Nicotine dependence, cigarettes, uncomplicated
CPT/HCPCS: 99281

== ENCOUNTER 2020-06-03 13:21 | Emergency (ER) | payer SELFPAY ==
--- OUTSIDE RECORDS SUMMARY | 2020-06-03 13:22 | XMS REPORT | Continuity of Care Document ---
:1985 Author Organization [facility] t Address [address] [place] [address] Care Team Providers Name Role Phone Doctor Unassigned, Name Attending Clinician Unavailable Sarah KENNEY, S Attending Clinician Alondra KUMAR K Attending Clinician Unavailable Pcp, Does Not Have A Attending Clinician Marco KUMAR S Attending Clinician Unavailable Tomas Jaime MD Attending Clinician Care, Adult Urgent Attending Clinician Unavailable Problems This patient has no known problems. Allergies, Adverse Reactions, Alerts This patient has no known allergies or adverse reactions. Medications This patient has no known medications. Procedures This patient has no known procedures. Encounters Start End Encounter Admission Attending Care Care Encounter Source Date/Time Date/Time Type Type Clinicians Facility Department ID 2020-01-03 2020-01-03 Orders Doctor ARNOLD [id number] 00:00:00 00:00:00 Only UnassignedDHEERAJ [id number] [facility] [id number] [id number] 2019-12-26 2019-12-26 Orders Doctor ARNOLD [id number] 00:00:00 00:00:00 Only UnassignedDHEERAJ [id number] [facility] [id number] [id number] 2019-11-24 2019-11-24 Emergency MANDA Smith [id number] 19:13:23 23:30:00 Kristel Pillai [id number] [place] 4.2.7.2.686 [place] [id number] 2019-09-30 2019-09-30 Nurse CLAYTON Cantu [id number] 00:00:00 00:00:00 Triage Aaliyah ESQUEDA [id number] [facility] [id number] 2019-09-30 2019-09-30 Telephone [facility] [id number] 00:00:00 00:00:00 Patient PRIMARY [id number] Does Not CARE 4.2.7.2.686 Have A PAVILLION [id number] 2019-09-27 2019-09-27 Nurse CLAYTON Lara [id number] 00:00:00 00:00:00 Triage Jazmin ESQUEDA 350.1.13.10 [facility] [id number] [id number] 2019-09-26 2019-09-26 Telephone [facility] [id number] 00:00:00 00:00:00 [facility] [id number] [facility] [id number] [facility] [id number] [facility] 2019-09-13 2019-09-13 Telemedici Tomas [facility] [id number] 12:53:30 13:08:30 ne Visit [facility], PRIMARY [id number] Aaliyah CARE 4.2.7.2.686 PAVILLION [id number] 2019-09-12 2019-09-12 Telephone CareDeanna [id number] 00:00:00 00:00:00 Adult Pediatric [id number] Urgent [facility] and 4.2.7.2.686 Adult [id number] [facility] 2019-09-11 2019-09-11 Urgent Care, Deanna Chen [id number] 15:04:12 15:18:28 Care Adult Pediatric [id number] Urgent s and 4.2.7.2.686 Adult [id number] [facility] 2019-09-09 2019-09-09 Telephone PcpCLAYTON [id number] 00:00:00 00:00:00 Patient DHEERAJ 350.1.13.10 Does Not HOSPITAL 4.2.7.2.686 Have A [id number] Results This patient has no known results.
--- NOTE | 2020-06-03 13:59 | EDPHYS ---
Physician Documentation [facility] Name: Gina Mon Age: 35 yrs Sex: Female : 1985 Arrival Date: 06/03/2020 Time: 13:23 Bed 26 Private MD: ED Physician Norberto Calderon HPI: 06/03 14:11 This 35 yrs old Female presents to ER via Ambulatory with complaints of snw Insect Bite. 14:11 Onset: The symptoms/episode began/occurred acutely. The patient has experienced a snw previous episode, but not to this area. The patient has not recently seen a physician. no fever. Historical: - Allergies: 13:37 BEE STINGS; dm5 13:37 GABAPENTIN; dm5 - Home Meds: 13:37 Flonase 50 mcg/actuation Nasal spsn [Active]; Claritin 10 mg Oral tab 1 tab once daily dm5 [Active]; - PMHx: 13:37 seasonal allergies; manic depressive; dm5 - PSHx: 13:37 Cholecystectomy; bilateral feet - ingrown toenail; dm5 - Immunization history:: Adult Immunizations unknown. - Social history:: Smoking status: unknown. ROS: 14:07 Constitutional: Negative for fever, chills, and weight loss, Eyes: Negative for injury, snw pain, redness, and discharge, ENT: Negative for injury, pain, and discharge, Neck: Negative for injury, pain, and swelling, Cardiovascular: Negative for chest pain, palpitations, and edema, Respiratory: Negative for shortness of breath, cough, wheezing, and pleuritic chest pain, Abdomen/GI: Negative for abdominal pain, nausea, vomiting, diarrhea, and constipation, Back: Negative for injury and pain, : Negative for injury, bleeding, discharge, and swelling, MS/Extremity: Negative for injury and deformity, Neuro: Negative for headache, weakness, numbness, tingling, and seizure, Psych: Negative for depression, anxiety, suicide ideation, homicidal ideation, and hallucinations. 14:07 Skin: Positive for abscess, draining area to left butt. Exam: 14:12 Constitutional: This is a well developed, well nourished patient who is awake, alert, snw and in no acute distress. Head/Face: Normocephalic, atraumatic. Eyes: Pupils equal round and reactive to light, extra-ocular motions intact. Lids and lashes normal. Conjunctiva and sclera are non-icteric and not injected. Cornea within normal limits. Periorbital areas with no swelling, redness, or edema. ENT: Nares patent. No nasal discharge, no septal abnormalities noted. Tympanic membranes are normal and external auditory canals are clear. Oropharynx with no redness, swelling, or masses, exudates, or evidence of obstruction, uvula midline. Mucous membranes moist. Neck: Trachea midline, no thyromegaly or masses palpated, and no cervical lymphadenopathy. Supple, full range of motion without nuchal rigidity, or vertebral point tenderness. No Meningismus. Chest/axilla: Normal chest wall appearance and motion. Nontender with no deformity. No lesions are appreciated. Cardiovascular: Regular rate and rhythm with a normal S1 and S2. No gallops, murmurs, or rubs. Normal PMI, no JVD. No pulse deficits. Respiratory: Lungs have equal breath sounds bilaterally, clear to auscultation and percussion. No rales, rhonchi or wheezes noted. No increased work of breathing, no retractions or nasal flaring. Abdomen/GI: Soft, non-tender, with normal bowel sounds. No distension or tympany. No guarding or rebound. No evidence of tenderness throughout. Back: No spinal tenderness. No costovertebral tenderness. Full range of motion. MS/ Extremity: Pulses equal, no cyanosis. Neurovascular intact. Full, normal range of motion. Neuro: Awake and alert, GCS 15, oriented to person, place, time, and situation. Cranial nerves II-XII grossly intact. Motor strength 5/5 in all extremities. Sensory grossly intact. Cerebellar exam normal. Normal gait. Psych: Awake, alert, with orientation to person, place and time. Behavior, mood, and affect are within normal limits. 14:12 Skin: abscess, that is moderate sized, approximately 4 cm(s), of the left lower buttock cheek, with drainage, that is purulent, that is serosanguinous. Vital Signs: 13:43 BP 111 / 85; Pulse 91; Resp 16; Temp 97.0; Pulse Ox 99% ; Pain 9/10; zb 15:12 BP 114 / 60; Pulse 89; Resp 16; Pulse Ox 100% on R/A; zb Procedures: 13:45 I \T\ D: Incision and drainage was performed for an abscess of the left perianal area. snw Prepped with Betadine, Anesthetized with nothing. Drained large amount purulent fluid. serosanguinous fluid. Loculations removed. the patient tolerated the procedure well. MDM: 13:31 Patient medically screened. snw 14:06 Data reviewed: vital signs, nurses notes. Data interpreted: Pulse oximetry: on room air snw is 99 %. Interpretation: normal. Counseling: I had a detailed discussion with the patient and/or guardian regarding: the historical points, exam findings, and any diagnostic results supporting the discharge/admit diagnosis, the need for outpatient follow up, to return to the emergency department if symptoms worsen or persist or if there are any questions or concerns that arise at home. Special discussion: Based on the history and exam findings, there is no indication for further emergent testing or inpatient evaluation. I discussed with the patient/guardian the need to see the general surgeon for further evaluation of the symptoms. I discussed with the patient/guardian the need to see the primary care provider for further evaluation of the symptoms. Administered Medications: 15:00 Drug: Bactrim (160 mg-800 mg (DS) 1 tablet Route: PO; zb 15:48 Follow up: Response: No adverse reaction zb 15:00 Drug: Harleigh 10 mg-325 mg 1 tabs Route: PO; zb 15:48 Follow up: Response: No adverse reaction; Pain is decreased; RASS: Alert and Calm (0) zb 15:10 Drug: Tetanus-Diphtheria Toxoid Adult 0.5 ml {Sand Sifter: [employer]. Exp: zb 08/16/2021. Lot #: [id number]. } Route: IM; Site: right deltoid; 15:48 Follow up: Response: No adverse reaction zb 15:10 Drug: Clindamycin 600 mg Route: IM; Site: right deltoid; zb 15:48 Follow up: Response: No adverse reaction zb 15:37 Drug: Hibiclens 4 % 1 application Route: Topical; Site: wound; zb Disposition: 16:31 I agree with the assessment and plan of care. kdr Disposition: 06/03/20 13:58 Discharged to Home. Impression: Cutaneous abscess of perineum. - Condition is Stable. - Discharge Instructions: Skin Abscess, How to Take a Sitz Bath, Perianal Abscess. - Prescriptions for Clindamycin HCl 300 mg Oral Capsule - take 1 capsule by ORAL route every 6 hours for 10 days; 40 capsule. Mobic 7.5 mg Oral Tablet - take 1 tablet by ORAL route once daily take with food; 20 tablet. Bactrim DS 800- 160 mg Oral Tablet - take 1 tablet by ORAL route every 12 hours for 10 days; 20 tablet. - Medication Reconciliation Form, Thank You Letter, Antibiotic Education, Prescription Opioid Use form. - Follow up: Emergency Department; When: As needed; Reason: Worsening of condition. Follow up: Private Physician; When: 2 - 3 days; Reason: Recheck today's complaints, Continuance of care, Re-evaluation by your physician. Signatures: Cece Moreno, RN RN dm5 Norberto Calderon MD MD [facility] Batool Mcgovern, CHIEF SALES OFFICER-C CHIEF SALES OFFICER-[employer] Elsy Spangler RN RN zb Corrections: (The following items were deleted from the chart) 15:50 13:58 06/03/2020 13:58 Discharged to Home. Impression: Cutaneous abscess of perineum. zb Condition is Stable. Forms are Medication Reconciliation Form, Thank You Letter, Antibiotic Education, Prescription Opioid Use. Follow up: Emergency Department; When: As needed; Reason: Worsening of condition. Follow up: Private Physician; When: 2 - 3 days; Reason: Recheck today's complaints, Continuance of care, Re-evaluation by your physician. snw
--- NOTE | 2020-06-03 13:59 | ER ---
Nurse's Notes [facility] Name: Gina Mon Age: 35 yrs Sex: Female : 1985 Arrival Date: 06/03/2020 Time: 13:23 Bed 26 Private MD: Diagnosis: Cutaneous abscess of perineum Presentation: 06/03 13:33 Chief complaint: Patient states: camping about a week ago, noticed "bite" like wound dm5 later, it is now draining pus and blood. Coronavirus screen: Client denies travel out of the [place] in the last 14 days. Ebola Screen: Patient negative for fever greater than or equal to 101.5 degrees Fahrenheit, and additional compatible Ebola Virus Disease symptoms Patient denies exposure to infectious person. Patient denies travel to an Ebola-affected area in the 21 days before illness onset. No symptoms or risks identified at this time. Risk Assessment: Do you want to hurt yourself or someone else? Patient reports no desire to harm self or others. Onset of symptoms was May 27, 2020. 13:33 Method Of Arrival: Ambulatory dm5 13:33 Acuity: KATRIN 4 dm5 13:33 Initial Sepsis Screen: Does the patient meet any 2 criteria? No. Patient's initial zb sepsis screen is negative. Does the patient have a suspected source of infection? No. Patient's initial sepsis screen is negative. Triage Assessment: 15:49 Bite description:. Bite description: abscess, no reported bite. zb 15:50 Bite description: animal information: vaccination(s) is not applicable. zb Historical: - Allergies: 13:37 BEE STINGS; dm5 13:37 GABAPENTIN; dm5 - Home Meds: 13:37 Flonase 50 mcg/actuation Nasal spsn [Active]; Claritin 10 mg Oral tab 1 tab once daily dm5 [Active]; - PMHx: 13:37 seasonal allergies; manic depressive; dm5 - PSHx: 13:37 Cholecystectomy; bilateral feet - ingrown toenail; dm5 - Immunization history:: Adult Immunizations unknown. - Social history:: Smoking status: unknown. Screenin:30 Abuse screen: Denies threats or abuse. Denies injuries from another. Nutritional zb screening: No deficits noted. Tuberculosis screening: No symptoms or risk factors identified. Fall Risk None identified. Assessment: 13:30 General: Appears in no apparent distress. uncomfortable, Behavior is calm, cooperative, zb appropriate for age, Denies fever, fatigue, chills. Pain: Complains of pain in right peritoneal area/buttocks Pain does not radiate. Pain currently is 9 out of 10 on a pain scale. Quality of pain is described as aching, sharp. Neuro: Level of Consciousness is awake, alert, obeys commands, Oriented to person, place, time, situation. Cardiovascular: Capillary refill < 3 seconds in bilateral fingers Patient's skin is warm and dry. Respiratory: Airway is patent Respiratory effort is even, unlabored, Respiratory pattern is regular, symmetrical. GI: Abdomen is flat, non-distended. : No signs and/or symptoms were reported regarding the genitourinary system. EENT: No signs and/or symptoms were reported regarding the EENT system. Derm: Skin is intact, is healthy with good turgor, Skin is dry, Skin is normal, Abscess located on right peritoneal area/ buttocks Reports pain that is 9 out of 10 on a pain scale. Denies itching. Musculoskeletal: Circulation, motion, and sensation intact. Capillary refill < 3 seconds, in bilateral fingers. Range of motion: intact in all extremities. 14:30 Reassessment: Patient appears in no apparent distress at this time. Patient and/or zb family updated on plan of care and expected duration. Pain level reassessed. Patient is alert, oriented x 3, equal unlabored respirations, skin warm/dry/pink. patient asleep at this time. 15:12 Reassessment: Patient appears in no apparent distress at this time. Patient and/or zb family updated on plan of care and expected duration. Pain level reassessed. Patient is alert, oriented x 3, equal unlabored respirations, skin warm/dry/pink. pt given medication, D/C pending 15 min protocol for IM injections. Vital Signs: 13:43 BP 111 / 85; Pulse 91; Resp 16; Temp 97.0; Pulse Ox 99% ; Pain 9/10; zb 15:12 BP 114 / 60; Pulse 89; Resp 16; Pulse Ox 100% on R/A; zb ED Course: 13:23 Patient arrived in ED. ag5 13:23 Batool Mcgovern [facility]-C [facility]. snw 13:23 Norberto Calderon MD is Attending Physician. snw 13:30 Arm band placed on right wrist. zb 13:33 Patient has correct armband on for positive identification. Bed in low position. Call zb light in reach. Side rails up X 1. Placed in gown. Door closed. Noise minimized. 13:36 Triage completed. dm5 13:43 Elsy Spangler RN is Primary Nurse. 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 Patient did not have IV access during this zb emergency room visit. Administered Medications: 15:00 Drug: Bactrim (160 mg-800 mg (DS) 1 tablet Route: PO; zb 15:48 Follow up: Response: No adverse reaction zb 15:00 Drug: Fraser 10 mg-325 mg 1 tabs Route: PO; zb 15:48 Follow up: Response: No adverse reaction; Pain is decreased; RASS: Alert and Calm (0) zb 15:10 Drug: Tetanus-Diphtheria Toxoid Adult 0.5 ml {Hander In: [employer]. Exp: zb 08/16/2021. Lot #: [id number]. } Route: IM; Site: right deltoid; 15:48 Follow up: Response: No adverse reaction zb 15:10 Drug: Clindamycin 600 mg Route: IM; Site: right deltoid; zb 15:48 Follow up: Response: No adverse reaction zb 15:37 Drug: Hibiclens 4 % 1 application Route: Topical; Site: wound; zb Outcome: 13:58 Discharge ordered by MD. snw 15:49 Discharged to home ambulatory. zb 15:49 Condition: stable 15:49 Discharge instructions given to patient, Instructed on discharge instructions, follow up and referral plans. medication usage, Demonstrated understanding of instructions, follow-up care, medications, Prescriptions given X 3. 15:50 Patient left the ED. zb Signatures: Cece Moreno, RN RN dm5 Batool Mcgovern FNP-C QUALITY LIAISON-Bailey Turner 5 Elsy Spangler RN RN zb Corrections: (The following items were deleted from the chart) 15:48 15:47 Response: No adverse reaction; Pain is decreased zb zb
[2020-06-03] MEDS ORDERED: HYDROCODONE/APAP 10/325 TAB ONE (15:07)
[2020-06-03] MEDS ORDERED: SMZ./TMP. 800/160 MG TABLET ONE (15:07)
[2020-06-03] MEDS ORDERED: TETANUS & DIPHTHERIA TOX,ADULT 0.5 ML VIAL ONE (15:08)
[2020-06-03] MEDS ORDERED: CLINDAMYCIN IV 150 MG/ML (4 mL) VIAL ONE (15:08)
[2020-06-03 15:55] VITALS: TEMP 97
[2020-06-03 15:56] VITALS: BP 114/60; O2SAT 100
== END 2020-06-03 15:50 | disposition home or self-care (01) ==
LOC: ER 13:21
PROC: 0J990ZZ Drainage of Buttock Subcutaneous Tissue and Fascia, Open Approach (ICD-10-PCS; principal; 2020-06-03)
DX: L02.31 Cutaneous abscess of buttock (principal); Z23 Encounter for immunization; J30.2 Other seasonal allergic rhinitis; Z88.8 Allergy status to other drugs, medicaments and biological substances; Z91.030 Bee allergy status
CPT/HCPCS: 90471; 90714; 96372; 99283; S0077